=== PATIENT | female | born 1955 | race Caucasian/White ===

== ENCOUNTER 2020-04-15 16:49 | Inpatient (IN) ==
[2020-04-15] MEDS ORDERED: *HR* Heparin 5,000 UNIT/ML VIAL ONE (16:56)
[2020-04-15] MEDS ORDERED: 0.9 % Sodium Chloride 1,000 ML ONE ×3 (16:56→17:12)
[2020-04-15] MEDS ORDERED: 0.9 % Sodium Chloride 1,000 ML IVC ONE (16:59)
[2020-04-15] MEDS ORDERED: ISOVUE-370 200 ML INFUS..BTL ONE (17:00)
[2020-04-15] MEDS ORDERED: *HR* Heparin 10,000 UNIT/10 ML VIAL ONE (17:00)
[2020-04-15] MEDS ORDERED: Heparin 1,000 UNITS/500 mL 500 ML ONE (17:00)
[2020-04-15] MEDS ORDERED: Nitroglycerin 1,000 MCG/10 ML VIAL IV ONE (17:01)
[2020-04-15] MEDS: *HR* Ticagrelor 90 MG TABLET ONE (17:03)
[2020-04-15] MEDS ORDERED: *HR* Ticagrelor 90 MG TABLET PO ONE (17:08)
[2020-04-15] MEDS ORDERED: *HR* Heparin 5,000 UNIT/ML VIAL IVP ONE (17:10)
[2020-04-15 17:15] LABS: Basophils # 0.1 K/mcL (0.0-0.2); Basophils % 0.3 %; Eosinophils # 0.2 K/mcL (0.0-0.6); Eosinophils % 0.9 %; Hematocrit 48.4 % (35.3-44.9); Hemoglobin 16.1 g/dL (11.5-15.4); Immature Granulocytes % 0.5 % (0-4); Lymphocytes % 9.1 %; Mean Corpuscular HGB Conc 33.3 g/dL (31.6-35.5); Mean Corpuscular Volume 96.2 fL (83.0-100.0); Mean Platelet Volume 9.1 fL (9.4-12.4); Monocytes # 0.6 K/mcL (0.0-1.3); Monocytes % 2.7 %; Neutrophils # 18.7 K/mcL (1.6-8.9); Platelet Count 384 K/mcL (140-400); Prothrombin Time 11.1 Seconds (9.4-12.1); Red Blood Count 5.03 M/mcL (3.82-4.97); Red Cell Distribution Width 14.7 % (11.5-14.5); Segmented Neutrophils % 86.5 %; White Blood Count 21.6 K/mcL (4.3-11.1)
[2020-04-15 17:18] LABS: Activated Partial Thrombo Time 29.8 Seconds (26.0-36.0)
[2020-04-15] MEDS ORDERED: Tirofiban 12.5 MG/250ML 12.5 MG/250 ML BAG ONE (17:19)
[2020-04-15] MEDS ORDERED: *HR* Atropine Sulfate 1 MG/10 ML SYRINGE ONE ×2 (17:20→20:58)
[2020-04-15] MEDS ORDERED: *HR* Midazolam HCl 2 MG/2 ML VIAL ONE (17:20)
[2020-04-15] MEDS ORDERED: *HR* FentaNYL (PF) 100 MCG/2 ML VIAL ONE (17:20)
[2020-04-15 17:34] LABS: BUN/Creatinine Ratio 11 (6-26); Blood Urea Nitrogen 7 mg/dL (8-23); Calcium 9.5 mg/dL (8.6-10.3); Carbon Dioxide 26 mEq/L (23-29); Chloride 101 mEq/L (98-107); Glucose 140 mg/dL (70-105); Osmolality,Calculated 286 (280-300); Potassium 4.1 mEq/L (3.5-5.1); Sodium 138 mEq/L (136-145); Troponin I 0.03 ng/mL (< 0.04); eGFR For African Americans > 60 (> 60); eGFR For Non-African Americans > 60 (> 60)
[2020-04-15] MEDS ORDERED: Ondansetron 4 MG/2 ML VIAL ONE (18:06)
[2020-04-15] MEDS ORDERED: Perflutren Lipid Microsphere 1.3 ML in 0.9 % Sodium Chloride 8.7 ML IVP PRN (18:18)
[2020-04-15] MEDS ORDERED: Tirofiban 12.5 MG/250ML 12.5 MG/250 ML BAG IVC SCH (18:30)
[2020-04-15] MEDS ORDERED: Acetaminophen 325 MG TABLET PO ONE (19:52)
[2020-04-15] MEDS: *HR* Ticagrelor 90 MG TABLET PO SCH (20:33)
[2020-04-15] MEDS ORDERED: 0.9 % Sodium Chloride 500 ML ONE (20:58)
[2020-04-16 02:24] LABS: Basophils # 0.1 K/mcL (0.0-0.2); Basophils % 0.4 %; Eosinophils # 0.1 K/mcL (0.0-0.6); Eosinophils % 0.8 %; Hematocrit 40.8 % (35.3-44.9); Immature Granulocytes % 0.3 % (0-4); Lymphocytes # 1.9 K/mcL (0.6-4.6); Lymphocytes % 11.6 %; Mean Corpuscular HGB Conc 33.3 g/dL (31.6-35.5); Mean Corpuscular Hemoglobin 31.8 pg (28.0-33.3); Mean Corpuscular Volume 95.3 fL (83.0-100.0); Mean Platelet Volume 9.1 fL (9.4-12.4); Monocytes # 0.7 K/mcL (0.0-1.3); Monocytes % 4.1 %; Neutrophils # 13.8 K/mcL (1.6-8.9); Platelet Count 334 K/mcL (140-400); Red Blood Count 4.28 M/mcL (3.82-4.97); Red Cell Distribution Width 14.6 % (11.5-14.5); Segmented Neutrophils % 82.8 %; White Blood Count 16.7 K/mcL (4.3-11.1)
[2020-04-16 02:29] LABS: Hemoglobin 13.6 g/dL (11.5-15.4)
[2020-04-16 02:43] LABS: BUN/Creatinine Ratio 13 (6-26); Blood Urea Nitrogen 6 mg/dL (8-23); Calcium 8.1 mg/dL (8.6-10.3); Carbon Dioxide 20 mEq/L (23-29); Chloride 108 mEq/L (98-107); Glucose 94 mg/dL (70-105); Osmolality,Calculated 283 (280-300); Potassium 3.9 mEq/L (3.5-5.1); Sodium 138 mEq/L (136-145); eGFR For African Americans > 60 (> 60); eGFR For Non-African Americans > 60 (> 60)
[2020-04-16] MEDS: Aspirin Enteric Coated 81 MG Tablet PO SCH (08:24)
[2020-04-16] MEDS: *HR* Ticagrelor 90 MG TABLET PO SCH ×2 (08:24→21:17)
[2020-04-16] MEDS ORDERED: Nicotine 14 MG PATCH.TD24 TD PRN (09:48)
[2020-04-16] MEDS ORDERED: Acetaminophen 325 MG TABLET PO PRN (09:51)
[2020-04-16] MEDS: Metoprolol XL (24 HR) Succ 25 MG TAB.ER.24H PO SCH (10:03)
[2020-04-16] MEDS: *HR* Heparin 5,000 UNIT/ML VIAL SQ SCH (17:44)
[2020-04-17] MEDS: *HR* Heparin 5,000 UNIT/ML VIAL SQ SCH ×2 (06:32→18:14)
[2020-04-17] MEDS: Aspirin Enteric Coated 81 MG Tablet PO SCH (09:00)
[2020-04-17] MEDS: Metoprolol XL (24 HR) Succ 25 MG TAB.ER.24H PO SCH (09:00)
[2020-04-17] MEDS: *HR* Ticagrelor 90 MG TABLET PO SCH ×2 (09:00→20:00)
[2020-04-17] MEDS ORDERED: lisinopriL 5 MG TABLET PO SCH (10:00)
[2020-04-17] MEDS ORDERED: Nicotine 14 MG PATCH.TD24 TD PRN (13:35)
[2020-04-17] MEDS ORDERED: Acetaminophen 325 MG TABLET PO PRN (13:35)
[2020-04-17] MEDS ORDERED: Perflutren Lipid Microsphere 1.3 ML in 0.9 % Sodium Chloride 8.7 ML IVP PRN (13:35)
[2020-04-18] MEDS: *HR* Heparin 5,000 UNIT/ML VIAL SQ SCH (06:14)
[2020-04-18 06:41] VITALS: BP 111/72
[2020-04-18] MEDS: *HR* Ticagrelor 90 MG TABLET PO SCH (08:22)
[2020-04-18] MEDS ORDERED: lisinopriL 5 MG TABLET PO SCH (09:00)
[2020-04-18] MEDS ORDERED: Aspirin Enteric Coated 81 MG Tablet PO SCH (09:00)
[2020-04-18] MEDS ORDERED: Metoprolol XL (24 HR) Succ 25 MG TAB.ER.24H PO SCH (09:00)
[2020-04-18 09:27] LABS: Basophils % 0.4 %; Eosinophils # 0.2 K/mcL (0.0-0.6); Eosinophils % 2.4 %; Hematocrit 47.5 % (35.3-44.9); Immature Granulocytes % 0.2 % (0-4); Lymphocytes # 1.2 K/mcL (0.6-4.6); Lymphocytes % 12.9 %; Mean Corpuscular HGB Conc 32.8 g/dL (31.6-35.5); Mean Corpuscular Hemoglobin 31.1 pg (28.0-33.3); Mean Corpuscular Volume 94.8 fL (83.0-100.0); Mean Platelet Volume 9.2 fL (9.4-12.4); Monocytes # 0.4 K/mcL (0.0-1.3); Monocytes % 3.7 %; Neutrophils # 7.7 K/mcL (1.6-8.9); Platelet Count 306 K/mcL (140-400); Red Blood Count 5.01 M/mcL (3.82-4.97); Red Cell Distribution Width 14.5 % (11.5-14.5); Segmented Neutrophils % 80.4 %; White Blood Count 9.6 K/mcL (4.3-11.1)
[2020-04-18 09:33] LABS: Hemoglobin 15.6 g/dL (11.5-15.4)
[2020-04-18 09:46] LABS: BUN/Creatinine Ratio 18 (6-26); Blood Urea Nitrogen 12 mg/dL (8-23); Calcium 9.3 mg/dL (8.6-10.3); Carbon Dioxide 21 mEq/L (23-29); Chloride 101 mEq/L (98-107); Glucose 121 mg/dL (70-105); Osmolality,Calculated 279 (280-300); Sodium 134 mEq/L (136-145); eGFR For African Americans > 60 (> 60); eGFR For Non-African Americans > 60 (> 60)
== END 2020-04-18 12:26 | disposition home or self-care (01) ==
LOC: EMEROOARM 16:49 → ICNU 17:29 → 2NNU 04-17 10:36
PROVIDERS: ADMIT Internal Medicine Interventional Cardiology; ATTEND Internal Medicine Interventional Cardiology